=== PATIENT | male | born 1970 | race Caucasian/White ===

== ENCOUNTER → 2017-04-28 | Outpatient (CLI) | payer BC ==
--- NOTE | 2017-04-29 06:36 | PAP/PSG TECHNICIAN REPORT ---
[facility] Tunnel Heading Supervisor Polysomnogram Report Study name: None Report date: 04/29/2017 Study date: 04/28/2017 Referring Physician: EVARISTO Cook Name: FRANCIE GONZALES Interpreting Physician: Deniz Mccarty M.D. Date of : 1970 Tunnel Heading Supervisor: Jacob Montemayor RPSGT. Sex: Male Age: 46 StudyType: PSG PAP Weight: 253 lbs 16.75 INCHES Height: 46 years, Height 5' 8" Neck Circum: BMI: 38.46 Medications: LIPITOR 40 MG, HYDRODIURIL 25 MG, CLARITIN 10 MG, FLONASE 50 MCG/ACT, ASPIRIN 81 MG, HYDROCHLOROTHIAZIDE 25 MG Patient History PATIENT HAS HISTORY OF FATIGUE, DAYTIME SLEEPINESS, SNORING AND TAKES NAPS DURING THE DAY. HE RECENTLY HAD A HOME STUDY DONE AND WAS POSITIVE FOR SHAZIA WITH AN AHI OF SHANNON OF 40.8/HR. HE IS HERE TODAY FOR A CPAP TITRATION. ESS = 8. RM 7 Parameters Monitored NPSG: E1-M2, E2-M1, Fp1-M2, Fp2-M1, F3-M2, F4-M2, F4-M1, C3-M2, C4-M2, C4-M1, O1-M2, O2-M2, O2-M1, T3-M2, T4-M1, P3-M2, P4-M1, CHIN1, CHIN2, HR, EKG, Legs, PFLOW, SNOR, FLOW, CFLOW, Tidal Volume, THOR, ABDO, SpO2, PLTH, CPRESS, ETCO2 Wave, ETCO2, pH Sleep Architecture Sleep Stages Time at Lights Off 11:01:49 PM STAGES Time (min.) TST (%) Time at Lights On 5:41:49 AM Wake 61.0 -- Total Recording Time (TRT) 400.50 min. N1 24.0 7 Total Sleep Period (TSP) 377.5 min. N2 169.5 50 Total Sleep Time (TST) 339.0min. N3 71.0 21 Awake Time 61.5 min. REM 74.5 22 Wake after Sleep Onset 38.5 min. Sleep Efficiency (SE) 85 % Sleep Onset Latency (LOLA) 22.5 min. Number of Stage 1 Shifts None Awakenings 14 Stage Changes 58 Number of REM periods 3 REM 74.5 22 REM Latency 93.5 min. NREM 264.5 78 Body Position Analysis Supine Right Left Side Prone Vertical Total Sleep Time (min.) 400.0 0.0 0.0 0.00 0.0 0.0 Total Sleep Time (%) 100% 0% 0% 0 0% N/A% Total Sleep Time REM (min.) 74.5 0.0 0.0 None 0.0 0.0 Total Sleep Time NREM (min.) 264.5 0.0 0.0 None 0.0 0.0 Intermittent Wake (min.) 61.0 0.0 0.0 None 0.0 0.0 Total Sleep Period (%) 100% None None None None None Arousals Myoclonus (PLM) * Events Count Index Events Count Index Spontaneous 16 3 Events Awake (PLMW) 62 61.0 Respiratory 7 1.2 Events Asleep w/ Arousal (PLMA) 2 0.4 PLM 2 0 Events Asleep w/o Arousal (PLMS) 46 8.1 Snoring 8 1 Total Asleep 48 8.5 Total 32 6 Total 110 17 Respiratory Analysis * CA OA MA CH H RERA Total Count 4 7 0 0 51 1 62 Index 0.7 1.2 0.0 0 9.0 0 11.2 Mean Duration 14.0 17.8 0.0 0.00 24.7 18.3 23.1 Longest Duration 19.2 28.7 0.0 0.00 0.0 18.3 51.4 Respiratory Event Summary Total Supine ~Supine Right Left Prone REM NREM Apneas Count 11 11 N/A N/A N/A N/A 6 5 Index 1.9 2 N/A N/A N/A N/A 5 1 Hypopneas (4% Desat) Count 51 51 N/A N/A N/A N/A 13 38 Index 9.0 9.0 N/A N/A N/A N/A 10.5 8.6 Apneas & All Hypopneas Count 62 62 N/A N/A N/A N/A 19 43 Index 11.0 11 N/A N/A N/A N/A 15.3 9.8 Respiratory Events (Dry Mop Maker+All Hyp+RERA) Count 62 63 N/A N/A N/A N/A 19 43 Index 11.2 11 N/A N/A N/A N/A 15.3 10.0 Respiratory Related Arousal Count 7 63 N/A N/A N/A N/A 0 7 Index 1.2 1 N/A N/A N/A N/A 0 2 Snoring Analysis Supine Right Left Prone REM NREM Total Snore duration 12.5 min Snores count 452 N/A N/A N/A 52 400 452 Snore mean duration 1.7 Sec Snores index 80 N/A N/A N/A 41.9 90.7 80.0 TST with snoring (%) 3.7% Desaturation Event Summary: Minimum %SpO2 Event Count Mean/Min/Max Duration(sec.) Desaturation Index % Time In Bed > 90 67 32.6 / 8.0 / 99.7 10.8 94.6 86 - 90 4 14.4 / 8.0 / 19.3 11.4 5.3 81 - 85 0 N/A 0.0 0.1 76 - 80 0 N/A 0.0 0.0 71 - 75 0 N/A 0.0 0.0 66 - 70 0 N/A 0.0 0.0 61 - 65 0 N/A 0.0 0.0 56 - 60 0 N/A 0.0 0.0 51 - 55 0 N/A 0.0 0.0 < 50 0 N/A 0.0 0.0 Total REM NREM Awake <50% 0.0 min. 0.0 min. 0.0 min. 0.0 min. 51 - 60% 0.0 min. 0.0 min. 0.0 min. 0.0 min. 61 - 70% 0.0 min. 0.0 min. 0.0 min. 0.0 min. 71 - 80% 0.0 min. 0.0 min. 0.0 min. 0.0 min. 81 - 90% 21.3 min. 3.1 min. 14.9 min. 3.4 min. 91 - 100% 372.3 min. 71.3 min. 249.6 min. 51.5 min. Average 93 94 93 94 Minimum SpO2 83 86 83 88 Desaturation Event Index 10.1 15.3 10.0 3.9 # Desat. Events below 89% 24 7 17 0 Time(%) with Saturation below 89% 1.2 0.3 0.9 0.0 Time(min.) with Saturation below 89% 4.7 1.1 3.4 0.2 Time (mins) REM (mins) NREM (mins) % of TST SpO2 Below 90% 43 12 N31 2.7 SpO2 Below 88% 11 0 0 0 Heart Rate Analysis Min (bpm) Max (bpm) Average (bpm) Awake 60 127 73 NREM 58 90 69 REM 57 79 68 Overall 57 90 69 Supplemental O2 Values Minimum O2 level: None Value Start Time End Time Tunnel Heading Supervisor Comments Mr. Gonzales slept in the supine positions. No cardiac arrhythmia noted. Leg movements noted. No bruxism noted. CPAP was initiated at +4 CMH2O and up-titrated to an optimal level of +14 CMH2O, which nearly eliminated all respiratory events and snoring. A Resmed Airfit N20 nasal mask size medium was used during titration Mr. Gonzales awoke to use the restroom 1 time during the night. Mr. Gonzales stated I slept as well as I do when I am in my own bed. The final report will be interpreted and signed by a sleep physician. The completed physician report will then be placed in the patient medical record. Therapy Event: Therapy (cm H20) 4 5 6 7 8 9 Total Time at Pressure (min.) 36.1 23.2 26.7 30.1 15.2 63.2 TST at Pressure (min.) 12.6 23.2 24.7 29.6 15.2 61.2 # Periods 1 1 1 1 1 1 Sleep Onset (min.) 22.5 0.0 0.0 0.0 0.0 0.0 REM Onset (min.) N/A N/A N/A 30.0 0.0 0.0 Sleep Efficiency % 34 100 92 98 100 96 Wakefulness (%) 65.1 0.0 7.5 1.7 0.0 3.2 Wakefulness (min.) 23.5 0.0 2.0 0.5 0.0 2.0 NREM 1 (%) 13.9 0.0 5.6 1.7 0.0 4.0 NREM 1 (min.) 5.0 0.0 1.5 0.5 0.0 2.5 NREM 2 (%) 21.0 42.6 63.7 26.6 0.0 72.1 NREM 2 (min.) 7.6 9.9 17.0 8.0 0.0 45.6 NREM 3 (%) 0.0 57.4 23.1 69.7 0.0 19.8 NREM 3 (min.) 0.0 13.3 6.2 21.0 0.0 12.5 REM (%) 0.0 0.0 0.0 0.4 100.0 1.0 REM (min.) 0.0 0.0 0.0 0.1 15.2 0.6 # Arousals 9 1 1 0 0 5 Arousal Index 42.9 2.6 2.4 0.0 0.0 4.9 # Snore 32 52 32 25 44 59 Snore Index 152.5 134.3 77.8 50.7 173.3 57.8 AHI 33.3 5.2 12.2 6.1 35.4 6.9 AHI Supine 33.3 5.2 12.2 6.1 35.4 6.9 AHI Non-Supine N/A N/A N/A N/A N/A N/A NREM AHI 33.3 5.2 12.2 6.1 N/A 6.9 REM AHI N/A N/A N/A 0.0 35.4 0.0 RDI 33.3 7.7 12.2 6.1 35.4 6.9 # Obstructive 0 0 0 0 2 3 # Central Ap 0 0 0 0 0 0 # Mixed 0 0 0 0 0 0 # Hypopneas 7 2 5 3 7 4 RERAS 0 1 0 0 0 0 Total Respiratory Events 7 3 5 3 9 7 Time Below SpO2 89.00% (min.) 1.2 0.5 0.7 0.7 0.5 0.5 Mean NREM SpO2 (%) 91 93 93 92 N/A 93 Mean REM SpO2 (%) N/A N/A N/A 88 93 94 Mean Sleep SpO2 (%) 91 93 93 92 93 93 Min NREM SpO2 (%) 86 87 83 88 N/A 87 Min REM SpO2 (%) N/A N/A N/A 88 87 91 Position Supine (min.) 12.6 23.2 24.7 29.6 15.2 61.2 Position Non-supine (min.) 0.0 0.0 0.0 0.0 0.0 0.0 LM Index Sleep 19.1 2.6 0.0 4.1 3.9 13.7 LM Index NREM 19.1 2.6 0.0 4.1 N/A 13.9 LM Index REM N/A N/A N/A 0.0 3.9 0.0 Mean Heart Rate (bpm) 71 71 70 71 71 70 Min Heart Rate (bpm) 67 67 66 65 62 64 Therapy (cm H20) 10 11 12 13 14 Total Time at Pressure (min.) 58.2 25.9 9.1 76.9 35.3 TST at Pressure (min.) 55.7 13.9 9.1 58.6 35.0 # Periods 1 1 1 1 1 Sleep Onset (min.) 0.0 0.0 0.0 0.0 0.3 REM Onset (min.) 36.4 0.0 N/A N/A 2.8 Sleep Efficiency % 95 53 100 76 99 Wakefulness (%) 4.3 46.3 0.0 23.7 0.8 Wakefulness (min.) 2.5 12.0 0.0 18.2 0.3 NREM 1 (%) 5.2 17.4 0.0 8.5 1.4 NREM 1 (min.) 3.0 4.5 0.0 6.5 0.5 NREM 2 (%) 22.2 20.2 100.0 67.8 5.7 NREM 2 (min.) 12.9 5.2 9.1 52.1 2.0 NREM 3 (%) 30.9 0.0 0.0 0.0 0.0 NREM 3 (min.) 18.0 0.0 0.0 0.0 0.0 REM (%) 37.5 16.1 0.0 0.0 92.1 REM (min.) 21.8 4.2 0.0 0.0 32.5 # Arousals 4 3 0 8 1 Arousal Index 4.3 12.9 0.0 8.2 1.7 # Snore 16 21 52 116 3 Snore Index 17.2 90.6 341.6 118.7 5.1 AHI 9.7 30.2 26.3 8.2 1.7 AHI Supine 9.7 30.2 26.3 8.2 1.7 AHI Non-Supine N/A N/A N/A N/A N/A NREM AHI 1.8 37.0 26.3 8.2 0.0 REM AHI 22.0 14.4 N/A N/A 1.8 RDI 9.7 30.2 26.3 8.2 1.7 # Obstructive 1 0 0 1 0 # Central Ap 4 0 0 0 0 # Mixed 0 0 0 0 0 # Hypopneas 4 7 4 7 1 RERAS 0 0 0 0 0 Total Respiratory Events 9 7 4 8 1 Time Below SpO2 89.00% (min.) 0.4 0.2 0.0 0.0 0.0 Mean NREM SpO2 (%) 94 93 94 94 94 Mean REM SpO2 (%) 94 94 N/A N/A 94 Mean Sleep SpO2 (%) 94 93 94 94 94 Min NREM SpO2 (%) 88 89 92 89 93 Min REM SpO2 (%) 86 88 N/A N/A 90 Position Supine (min.) 55.7 13.9 9.1 58.6 35.0 Position Non-supine (min.) 0.0 0.0 0.0 0.0 0.0 LM Index Sleep 10.8 0.0 0.0 10.2 10.3 LM Index NREM 8.8 0.0 0.0 10.2 0.0 LM Index REM 13.7 0.0 N/A N/A 11.1 Mean Heart Rate (bpm) 69 68 68 66 65 Min Heart Rate (bpm) 62 63 64 58 57
--- NOTE | 2017-04-30 10:10 | POLYSOMNOGRAPH REPORT ---
CLINICAL DATA: A 46-year-old male with BMI of 38.5 referred by EVARISTO Shultz for a CPAP study. He had a home sleep apnea test which showed severe SHAZIA with an SHANNON of 40.8. SLEEP ARCHITECTURE: Total sleep period was 377.5 minutes. Total sleep time was 339 minutes divided between 264.5 minutes of non-REM sleep and 74.5 minutes of REM sleep. Sleep onset latency was 22.5 minutes. REM latency was 92.5 minutes. Sleep efficiency was 85%. Wake after sleep onset was 38.5 minutes. Sleep consisted of stage N1 7%, stage N2 53%, stage N3 21%, and REM 22%. AROUSAL DATA: 32 arousals were recorded for an index of 6 per hour. PLM DATA: 48 limb movements during sleep were noted for an index of 8.5 per hour with arousal index of 0.4 per hour. RESPIRATORY DATA: The AHI was 11. There were 4 central and 7 obstructive apneic episodes. The longest apneic episode was 28.7 seconds. There were 51 hypopneic episodes with a mean duration of 24.7 seconds. OXIMETRY DATA: Mild nocturnal hypoxemia was seen. Oxygen nathaniel was 83% during non-REM sleep. The mean saturation was 93%. Time below 88% was 11 minutes. EKG: Heart ranged from 57-90 beats per minute. No arrhythmias were noted. PLANT PATHOLOGIST'S COMMENTS AND TREATMENT SUMMARY: The patient slept supine. He used a ResMed AirFit N20 nasal mask, size medium. He was titrated up to his final pressure setting of CPAP 14 cm of water pressure. He slept for 35 minutes at this pressure with an AHI of 1.7. IMPRESSION: Severe sleep apnea/hypopnea corrected with CPAP 14 cm of water pressure, ResMed AirFit N20 nasal mask, size medium. RECOMMENDATIONS: The patient should be started on the above noted treatment regimen and seen back in followup within 90 days to document efficacy and compliance. HAYLIE
== END | disposition home or self-care (01) ==
LOC: C.NEUR 21:00
PROVIDERS: ATTEND Nurse Practitioner Family
DX: G47.33 Obstructive sleep apnea (adult) (pediatric) (principal)